=== PATIENT | male | born 1965 ===

== ENCOUNTER 2017-12-22 01:56 | Emergency (ER) | payer MEDICAID, OTHER ==
[2017-12-22 01:57] VITALS: BMI 30.7
[2017-12-22] MEDS ORDERED: Nitroglycerin 2% Ointment Foilpak UD TOP STA (02:06)
[2017-12-22 02:09] VITALS: O2SAT 98
[2017-12-22] MEDS ORDERED: Nitroglycerin 2% Ointment Foilpak UD TOP ONE (02:11)
--- NOTE | 2017-12-22 02:12 | ED PDOC ---
HPI: Chest Pain Time Seen by Provider: 12/22/17 02:05 Chief Complaint (Nursing): Chest Pain Chief Complaint (Provider): Chest pain History Per: Patient History/Exam Limitations: no limitations Onset/Duration Of Symptoms: Mins Current Symptoms Are (Timing): Still Present Quality: "Pain" Additional History Per: Patient, Family (son) Additional Complaint(s): 52yo male with history of hypothyroidsm, presents to ED for evaluation of acute onset chest pain radiating to his left arm 15 minutes prior to arrival. No other complaints. PMD: None provided Past Medical History Reviewed: Historical Data, Nursing Documentation, Vital Signs Vital Signs: Last Vital Signs Temp 97.6 F 12/22/17 02:18 Pulse 83 12/22/17 05:57 Resp 20 12/22/17 02:24 BP 146/93 H 12/22/17 02:24 Pulse Ox 98 12/22/17 05:57 - Medical History PMH: Arthritis, Hypothyroidism Denies: Chronic Kidney Disease - Surgical History Surgical History: No Surg Hx - Family History Family History: States: No Known Family Hx - Living Arrangements Living Arrangements: With Family - Social History Current smoker - smoking cessation education provided: No Alcohol: None Drugs: Denies - Home Medications Home Medications: Ambulatory Orders Medication Instructions Recorded Levothyroxine Sodium [Synthroid] 0.175 mg PO DAILY 07/24/15 - Allergies Allergies/Adverse Reactions: Allergies Allergy/AdvReac Type Severity Reaction Status Date / Time No Known Allergies Allergy Verified 07/24/15 08:23 Review of Systems ROS Statement: Except As Marked, All Systems Reviewed And Found Negative Cardiovascular: Positive for: Chest Pain Musculoskeletal: Positive for: Arm Pain (left arm pain) Physical Exam - Reviewed Nursing Documentation Reviewed: Yes Vital Signs Reviewed: Yes - Physical Exam Appears: Positive for: Uncomfortable Skin: Positive for: Normal Color, Warm, Dry Eye Exam: Positive for: Normal appearance Neck: Positive for: Normal, Supple Cardiovascular/Chest: Positive for: Regular Rate, Rhythm Respiratory: Positive for: Normal Breath Sounds Gastrointestinal/Abdominal: Positive for: Normal Exam, Soft. Negative for: Tenderness Back: Positive for: Normal Inspection Extremity: Positive for: Normal ROM. Negative for: Deformity Neurologic/Psych: Positive for: Alert, Oriented. Negative for: Motor/Sensory Deficits - Laboratory Results Result Diagrams: 12/22/17 02:13 12/22/17 02:13 - ECG ECG: Positive for: Interpreted By Me, Viewed By Me ECG Rhythm: Positive for: Sinus Rhythm, ST/T Changes (ST elevation V2, 3, 4, 5, 6) Rate: 83 O2 Sat by Pulse Oximetry: 98 (RA) Pulse Ox Interpretation: Normal - Critical Care Total Time (In Min): 30 Documented Critical Care: Time excludes all time spent performint seperately billable procedures Medical Decision Making Medical Decision Making: Impression: Acute STEMI Time: 203 Code heart activated. Case discussed with Dr. Martínez, who concurs Labs, EKG and CXR ordered. Aspirin 324mg PO and Nitro paste applied Time: [address] Martínez patient given Heparin 5000 units bolus, Brilinta 180mg PO. Morphine 2mg IVP given. Patient transferred to [facility] for emergent cardiac catheterization DX STEMI Guarded Scribe Attestation: Documented by Prema León, acting as a scribe for Rex Rothman MD Provider Scribe Attestation: All medical record entries made by the Scribe were at my direction and personally dictated by me. I have reviewed the chart and agree that the record accurately reflects my personal performance of the history, physical exam, medical decision making, and the department course for this patient. I have also personally directed, reviewed, and agree with the discharge instructions and disposition. Disposition - Clinical Impression Clinical Impression: STEMI (ST elevation myocardial infarction), Acute RI - Disposition Disposition: Other Institution Disposition Time: 02:04 Condition: GUARDED Forms: [employer] (Bengali)
[2017-12-22 02:16] LABS: BASO # 0.1 K/uL (0.0-0.2); BASO % 0.7 % (0.0-2.0); EOS # 0.2 K/uL (0.0-0.7); HEMOGLOBIN 15.4 g/dL (12.0-18.0); LYMPH # 5.2 K/uL (1.0-4.3); LYMPH % 47.2 % (20.0-40.0); MEAN CELL VOLUME 79.8 fl (80.0-94.0); MEAN CORPUSCULAR HEMOGLOBIN 27.6 pg (27.0-31.0); MEAN CORPUSCULAR HGB CONC 34.5 g/dL (33.0-37.0); MONO % 9.5 % (0.0-10.0); NEUT # 4.5 K/uL (1.8-7.0); NEUT % 40.6 % (50.0-75.0); NRBC % 0.1 % (0.0-0.0); RBC 5.61 Mil/uL (4.40-5.90)
[2017-12-22 02:18] VITALS: TEMP 97.6
[2017-12-22 02:24] VITALS: PULSE 83
[2017-12-22 02:25] VITALS: BP 146/93; RESP 20
[2017-12-22 02:25] LABS: ALBUMIN 3.9 g/dL (3.5-5.0); ALT/SGPT 37 U/L (21-72); AST/SGOT 23 U/L (17-59); BLOOD UREA NITROGEN 15 mg/dl (9-20); GFR AFRICAN-AMERICAN > 60; GFR NON-AFRICAN AMERICAN > 60
[2017-12-22 02:29] LABS: INR 1.1 (0.9-1.2); PARTIAL THROMBOPLASTIN TIME 27.1 Seconds (25.6-37.1); PROTHROMBIN TIME 11.8 Seconds (9.8-13.1)
--- NOTE | 2017-12-22 08:40 | RAD ---
HISTORY: chest pain COMPARISON: No prior. FINDINGS: LUNGS: No active pulmonary disease. PLEURA: No significant pleural effusion identified, no pneumothorax apparent. CARDIOVASCULAR: Normal. OSSEOUS STRUCTURES: Mild degenerative changes. VISUALIZED UPPER ABDOMEN: Normal. OTHER FINDINGS: None. IMPRESSION: No active disease.
--- NOTE | 2017-12-22 09:07 | CARD ---
APPROVED REPORT EKG Measurement Heart [id number] <Conclusion> Normal sinus rhythm Anteroseptal infarct, possibly acute T wave abnormality, consider inferior ischemia ACUTE SD / STEMI Abnormal ECG
== END 2017-12-22 02:30 | disposition short-term general hospital (02) ==
LOC: H.ER 01:56
DX: I21.9 Acute myocardial infarction, unspecified (principal); E03.9 Hypothyroidism, unspecified; Z79.82 Long term (current) use of aspirin
CPT/HCPCS: 71045; 80053; 82948; 84484; 85025; 85610; 85730; 93005; 96374; 96375; 99285; J1644; J2270